=== PATIENT | female | born 1990 | race Caucasian/White ===

== ENCOUNTER → 2019-02-01 | Outpatient (CLI) | payer OTHER ==
--- NOTE | 2019-02-02 07:52 | REP ---
PA and lateral chest: There are no comparisons. The lung aviles are clear. The cardiac size is normal. The becky, mediastinum, and skeletal structures are unremarkable except for thoracic scoliosis convex right. Impression: Negative PA and lateral chest. Electronically Signed by Carlos Roldan MD 02/01/2019 11:45 A
== END ==
LOC: M LRY 11:00
PROVIDERS: ATTEND Physician Assistant
DX: J40 Bronchitis, not specified as acute or chronic (principal); R05 Cough